=== PATIENT | male | born 1975 | race Two or more races ===

== ENCOUNTER 2021-12-17 01:20 | Emergency (ER) | payer MEDICAID ==
[~2021-12-17] VITALS: Ht 175.3 cm; Wt 95.3 kg
--- NOTE | 2021-12-17 02:13 | NUR ---
Receuved a 46 year old male. brought in by family. Family at bedside. Patient brought in for bizarre behavior x 2 days. Per family, patient with similar episode of bizarre behavior 20 years ago and last year. Patient not on prescribed psychotic medications. Bed low, in locked position. Safety measures implemented. will continue to monitor.
[2021-12-17 02:15] LABS: BASOPHILS % (AUTO) 0.3 % (0.0-2.0); EOSINOPHILS % (AUTO) 2.1 % (0.0-6.0); HEMATOCRIT 44 % (39-51); HEMOGLOBIN 15.1 g/dL (13.5-17.5); LYMPHOCYTES # (AUTO) 2.7 K/uL (0.8-4.8); LYMPHOCYTES % (AUTO) 34.4 % (20.0-44.0); MEAN CORPUSCULAR HGB CONC 34 g/dl (31.0-36.0); MEAN CORPUSCULAR VOLUME 93 fL (80-96); MONOCYTES # (AUTO) 0.6 K/uL (0.1-1.30); MONOCYTES % (AUTO) 8.2 % (2.0-12.0); NEUTROPHILS # (AUTO) 4.3 K/uL (1.8-8.9); PLATELET COUNT (AUTO) 200 K/uL (150-450); RED BLOOD CELL COUNT(AUTO) 4.76 MIL/uL (4.5-6.0); WHITE BLOOD COUNT (AUTO) 7.7 K/uL (4.3-11.0)
[2021-12-17 02:41] LABS: BILIRUBIN,URINE NEGATIVE (NEGATIVE); COLOR,URINE YELLOW (YELLOW); LEUKOCYTE ESTERASE ,URINE NEGATIVE (NEGATIVE); NITRITE, URINE NEGATIVE (NEGATIVE); PH,URINE 5.5 (5.0-8.0); PROTEIN,URINE NEGATIVE (NEGATIVE); UGLUCOSE NEGATIVE (NEGATIVE); UROBILINOGEN,URINE 0.2 EU/dL (0.2)
[2021-12-17 02:49] LABS: CALCIUM, SERUM 8.7 mg/dL (8.5-10.1); CARBON DIOXIDE 27 mmol/L (21-32); CHLORIDE 105 mmol/L (98-107); CREATININE 1.1 mg/dL (0.6-1.3); GLUCOSE 114 mg/dL (74-106); POTASSIUM 3.5 mmol/L (3.5-5.1); SODIUM SERUM 140 mmol/L (136-145); UREA NITROGEN, BLOOD 21 mg/dL (7-18)
[2021-12-17 02:55] LABS: ALANINE AMINOTRANSFERASE 24 U/L (12-78); ALBUMIN 4.2 g/dL (3.4-5.0); ALCOHOL, BLOOD < 3 mg/dL (0-0); ALKALINE PHOSPHATASE 72 U/L (46-116); ASPARTATE AMINOTRANSFERASE 18 U/L (15-37); BILIRUBIN,DIRECT 0.1 mg/dL (0.0-0.2); BILIRUBIN,TOTAL 0.6 mg/dL (0.2-1.0); TOTAL PROTEIN, SERUM 7.5 g/dL (6.4-8.2)
[2021-12-17 02:57] LABS: ACETAMINOPHEN < 2 ug/ml (10-30)
--- NOTE | 2021-12-17 03:35 | NUR ---
LONNIE - CRISIS TEAM PAGED PER DR CHAVARRIA.
[2021-12-17] MEDS ORDERED: diphenhydrAMINE HCL 50 MG/ML VIAL ONE (04:36)
[2021-12-17] MEDS ORDERED: LORAZEPAM INJ 2 MG/ML VIAL ONE (04:37)
[2021-12-17] MEDS ORDERED: HALOPERIDOL LACTATE INJ 5 MG/ML VIAL ONE (04:37)
[2021-12-17] MEDS ORDERED: HALOPERIDOL LACTATE INJ 5 MG/ML VIAL IM ONE (05:00)
[2021-12-17] MEDS ORDERED: diphenhydrAMINE HCL 50 MG/ML VIAL IM ONE (05:00)
[2021-12-17] MEDS ORDERED: LORAZEPAM INJ 2 MG/ML VIAL IM ONE (05:00)
--- NOTE | 2021-12-17 05:21 | NUR ---
PATIENT WAS SEEN AND EVALUATED BY LONNIE FROM CRISIS TEAM
[2021-12-17 07:52] VITALS: BP 144/80
--- NOTE | 2021-12-17 11:01 | NUR ---
Psych Placement: SANDRA followed up with [facility] at [phone] and per intake pt. has to be placed through [facility] [phone] because he has presumptive MCAL. SANDRA called [facility] at [phone] and per intake "they cannot accept a patient from a hospital who has its own LPS desisgnanted facility". SANDRA explained that our psych facility is for geriatric patients only and they said it did not matter. SANDRA faxed [facility] [[id number] [place] [address] tel: [facility] TEL: [phone] fax: [phone] fax:[phone]
--- NOTE | 2021-12-17 11:34 | NUR ---
SANDRA received call from account coordinator, Tiera from [facility] TEL: [phone] fax: [phone] fax:[phone] stating that the pt. has been clinically approved and is just pending bed availability. Noted. [facility] will call SW back when bed becomes available.
--- NOTE | 2021-12-17 12:07 | NUR ---
ACCEPTED AT [facility] UNDER [address]UCIO [id number] [address] GOING TO UNIT II, BED 13.018 NUMBER FOR REPORT [phone]
--- NOTE | 2021-12-17 12:18 | NUR ---
[facility] CALLED. ETA 1 HOUR
--- NOTE | 2021-12-17 13:25 | NUR ---
REPORT GIVEN TO LINDA REED AT [facility] [phone] FOR [place]
== END 2021-12-17 13:30 ==
LOC: ER 01:36
DX: R46.2 Strange and inexplicable behavior (principal); Z20.822 Contact with and (suspected) exposure to COVID-19
CPT/HCPCS: 99291; 96372 ×2; 85025; 80048; 80076; 81003; 36415; 87426; 80143; 80320; 80307; J2060; J1200; J1630; C9803; G0480